=== PATIENT | female | born 1975 | race Caucasian/White ===

== ENCOUNTER → 2018-11-16 | Outpatient (CLI) | payer OTHER ==
--- NOTE | 2018-11-16 17:17 | US ---
EXAMINATION TYPE: US transvaginal DATE OF EXAM: 11/16/2018 COMPARISON: 08/28/2013 CLINICAL HISTORY: 43-year-old female N92.1Excessive and frequent menstruation with irre. TECHNIQUE: Transvaginal (TV). Date of LMP: 2 weeks ago EXAM MEASUREMENTS: Uterus: 9.5 x 5.2 x 8.1 cm Endometrial Stripe: 3.0 cm Right Ovary: 4.9 x 3.1 x 2.6 cm for volume of 19.7 mL, upper limits of normal in size Left Ovary: 2.8 x 1.5 x 2.1 cm 1. Uterus: Retroverted. Nabothian cysts noted 2. Endometrium: severely thickened with several cystic areas, largest measures 0.5 x 0.6 x 0.5 cm 3. Right Ovary: multiple cysts largest measures 2.6 x 1.5 x 2.2 cm 4. Left Ovary: wnl 5. Bilateral Adnexa: wnl 6. Posterior cul-de-sac: no free fluid IMPRESSION: 1. Severely thickened endometrium (3.0 cm) with cystic change. Findings could represent endometrial h yperplasia. Cystic endometrial hyperplasia can be seen with certain medications such as tamoxifen use . Clinically correlate. Adenomyosis would be an additional consideration. If indicated, consider fema le pelvic MRI to assess the junctional anatomy. 2. Gynecologic consultation would be helpful.
== END ==
LOC: RADUSWWP 06:54
PROVIDERS: ATTEND Family Medicine
DX: N85.00 Endometrial hyperplasia, unspecified (principal); R93.89 Abnormal findings on diagnostic imaging of other specified body structures
CPT/HCPCS: 76830

== ENCOUNTER → 2019-06-16 | Outpatient (CLI) | payer OTHER ==
--- NOTE | 2019-06-25 14:31 | MM ---
Reason for exam: additional evaluation requested from prior study. Last mammogram was performed 6 years ago. Physical Findings: Nurse did not find any significant physical abnormalities on exam. [facility] Diagnostic Mammo w CAD GEM Bilateral CC and MLO view(s) were taken. Prior study comparison: June 15, 2013, mammogram, performed at [facility]. June 07, 2013, mammogram, performed at [facility]. December 22, 2012, mammogram, performed at [facility]. June 03, 2012, mammogram, performed at [facility]. May 25, 2012, mammogram, performed at [facility]. The breast tissue is heterogeneously dense. This may lower the sensitivity of mammography. Benign appearing calcifications in the left breast. No suspicious abnormality. No significant new findings when compared with previous films. These results were verbally communicated with the patient on 06/25/19. ASSESSMENT: Benign, BI-RAD 2 RECOMMENDATION: Routine screening mammogram of both breasts in 1 year.
== END | disposition home or self-care (01) ==
LOC: RADMAMWWP 07:13
PROVIDERS: ATTEND Family Medicine
DX: Z12.31 Encounter for screening mammogram for malignant neoplasm of breast (principal)
CPT/HCPCS: 77066

== ENCOUNTER → 2019-11-03 | Outpatient (CLI) | payer OTHER ==
--- NOTE | 2019-11-03 15:15 | US ---
EXAMINATION TYPE: US kidneys/renal and bladder DATE OF EXAM: 11/03/2019 COMPARISON: NONE CLINICAL HISTORY: N20.0 KIDNEY STONES. h/o renal stones years ago, new onset of pelvic pain, no hemat uria EXAM MEASUREMENTS: Right Kidney: 12.4 x 4.7 x 4.3 cm Left Kidney: 12.4 x 4.3 x 5.0 cm Right Kidney: No hydronephrosis or masses seen Left Kidney: No hydronephrosis or masses seen Bladder: wnl Bilateral Jets seen: yes There is no evidence for hydronephrosis at this point in time. No nephrolithiasis is seen. No nathalia s are identified. The urinary bladder is anechoic. Bilateral ureteral jets are seen. IMPRESSION: Unremarkable renal ultrasound. No hydronephrosis nor nephrolithiasis seen.
== END | disposition home or self-care (01) ==
LOC: RADUSWWP 14:07
PROVIDERS: ATTEND Family Medicine
DX: N20.0 Calculus of kidney (principal)
CPT/HCPCS: 76770

== ENCOUNTER 2020-01-30 01:18 | Emergency (ER) | payer OTHER ==
[2020-01-30] MEDS ORDERED: SODIUM CHLORIDE 0.9% 1,000 ML IV STA (03:16)
[2020-01-30] MEDS ORDERED: HYDROmorphone 1 MG/ML 1 ML SYRINGE IVP STA (03:16)
[2020-01-30] MEDS ORDERED: ONDANSETRON 4 MG/2 ML VIAL IVP STA (03:16)
--- NOTE | 2020-01-30 03:54 | XR ---
EXAMINATION TYPE: XR KUB DATE OF EXAM: 01/30/2020 COMPARISON: 08/28/2013 HISTORY: Abdominal pain TECHNIQUE: 2 views upright FINDINGS: There are multiple small bowel intestinal air-fluid levels. Lung bases are clear. There is no sign of free air. There are clips from cholecystectomy. There are no pathologic calcifications ove r the kidneys. IMPRESSION: Multiple small bowel intestinal fluid levels could relate to mechanical small bowel obstr uction. No free air.
[2020-01-30 04:09] LABS: Basophils % (A) 0 %; Eosinophils # (A) 0.2 k/uL (0-0.7); Eosinophils % (A) 1 %; HCT 41.1 % (34.0-46.0); HGB 14.1 gm/dL (11.4-16.0); Hyperchromasia Slight; Lymphocytes # (A) 1.6 k/uL (1.0-4.8); Lymphocytes % (A) 10 %; MCH 27.4 pg (25.0-35.0); MCHC 34.3 g/dL (31.0-37.0); MCV 80.1 fL (80.0-100.0); Mean Platelet Volume 6.6; Monocytes # (A) 0.8 k/uL (0-1.0); Monocytes % (A) 5 %; Neutrophils # (A) 12.9 k/uL (1.3-7.7); Neutrophils % (A) 83 %; Platelet Count 312 k/uL (150-450); Poikilocytosis Slight; RBC 5.14 m/uL (3.80-5.40); RDW 14.9 % (11.5-15.5); WBC 15.6 k/uL (3.8-10.6)
[2020-01-30 04:16] LABS: Appearance,Urine Cloudy (Clear); Bacteria,Urine Rare /hpf; Bilirubin,Urine Negative (Negative); Blood,Urine Small (Negative); Color,Urine Yellow; Glucose,Urine (UA) Negative (Negative); Ketones,Urine Negative (Negative); Leukocyte Esterase,Urine Negative (Negative); Mucus,Urine Rare /hpf; Nitrite,Urine Negative (Negative); Protein,Urine 1+ (Negative); RBC,Urine 4 /hpf (0-5); Squamous Epithelial Cell,Urine 4 /hpf (0-4); Urobilinogen,Urine <2.0 mg/dL (<2.0); WBC,Urine 1 /hpf (0-5)
[2020-01-30 04:19] LABS: ALT 31 U/L (4-34); AST 29 U/L (14-36); African American GFR (CKD) >90 (>60 ml/min/1.73 sqM); Albumin 4.1 g/dL (3.5-5.0); Alkaline Phosphatase 109 U/L (38-126); Amylase 49 U/L (30-110); Anion Gap 10 mmol/L; Blood Urea Nitrogen 16 mg/dL (7-17); Calcium 9.4 mg/dL (8.4-10.2); Carbon Dioxide 29 mmol/L (22-30); Chloride 99 mmol/L (98-107); Glucose 148 mg/dL (74-99); Non-African American GFR(CKD) >90 (>60 ml/min/1.73 sqM); Potassium 3.1 mmol/L (3.5-5.1); Sodium 138 mmol/L (137-145); Total Bilirubin 0.4 mg/dL (0.2-1.3); Total Protein 6.7 g/dL (6.3-8.2)
--- NOTE | 2020-01-30 04:44 | CT ---
EXAMINATION TYPE: CT abdomen pelvis w con DATE OF EXAM: 01/30/2020 COMPARISON: 02/01/2011 HISTORY: Patient presents for possible small bowl obstruction. CT DLP: 1578.1 mGycm Automated exposure control for dose reduction was used. CONTRAST: Performed with IV Contrast, patient injected with 100mL mL of Isovue 300. Multiple axial sections were obtained from the diaphragm to the floor the pelvis with intravenous con trast. There is mild pleural thickening at the posterior lung bases. There is no pericardial effusion. Lung bases are clear of consolidation. There is fatty infiltration of the liver. Stomach is distended with fluid. The spleen is intact. There is no evidence of pancreatic mass. There are clips from cholecyst ectomy. There is no adrenal mass. Kidneys show satisfactory contrast opacification. There is no hydronephrosi s. Delayed images show normal renal excretion. Ureters are not dilated. There is no retroperitoneal a denopathy. Bladder distends smoothly. Uterus is retroverted. There is no evidence of a pelvic mass. T here is no inguinal hernia. There is no free fluid in the pelvis. There is small paraumbilical hernia that contains fat. There are multiple loops of fluid-filled large bowel down to the sigmoid colon. The small bowel is no t dilated. There are distended small bowel loops that measure up to 2.6 cm. There is no mesenteric ed christian. There is no ascites or free air. Lumbar spine is intact. IMPRESSION: Diffuse fatty infiltration of the liver is new compared to old exam. Small and large bowel fluid consistent with diarrhea. Mild small bowel ileus. No sign of a mechanical bowel obstruction. Small bowel distention is a change compared to old exam. There is new bilateral basilar pleural thickening and subsegmental atelectasis compared to old exam. Appendix not seen. No sign of thickened appendix.
--- NOTE | 2020-01-30 05:04 | ED ---
Abdominal Pain HPI - General Chief Complaint: Abdominal Pain Stated Complaint: umbilical hernia Time Seen by Provider: 01/30/20 01:35 Source: patient Mode of arrival: wheelchair Limitations: no limitations - History of Present Illness Initial Comments: 44-year-old female patient presents to the emergency department today for evaluation of generalized abdominal discomfort worse around the umbilicus. Patient states that she woke from sleep this evening with significant pain to her abdomen. Patient states she is nauseated but has not vomited. Patient states she has not had a bowel movement over the last week. States she was passing gas without difficulty yesterday. She does take any medication for her symptoms. Denies any recent travel or sick contacts. Denies any history of abdominal surgery. Denies fever or chills. Patient denies any recent rash, shortness breath, chest pain, back pain, numbness, tingling, dizziness, weakness, hematuria, dysuria, urinary urgency, urinary frequency, headache, visual changes, or any other complaints. - Related Data Allergies Allergy/AdvReac Type Severity Reaction Status Date / Time adhesive tape Allergy Unknown Verified 01/30/20 01:34 Review of Systems ROS Statement: Those systems with pertinent positive or pertinent negative responses have been documented in the HPI. ROS Other: All systems not noted in ROS Statement are negative. Past Medical History Past Medical History: Diabetes Mellitus, Hypertension Additional Past Medical History / Comment(s): hernia History of Any Multi-Drug Resistant Organisms: None Reported Past Surgical History: Section, Cholecystectomy, Uterine Ablation Past Psychological History: Anxiety Smoking Status: Never smoker Past Alcohol Use History: Rare Past Drug Use History: None Reported General Exam Limitations: no limitations General appearance: alert, in no apparent distress, other (Physical well- developed, well-nourished adult female patient in no acute distress. Vital signs upon presentation are temperature 97.8F, pulse 85, respirations 18, blood pressure 184/103, pulse ox 95% on room air) Respiratory exam: Present: normal lung sounds bilaterally. Absent: respiratory distress, wheezes, rales, rhonchi, stridor Cardiovascular Exam: Present: regular rate, normal rhythm, normal heart sounds. Absent: systolic murmur, diastolic murmur, rubs, gallop, clicks GI/Abdominal exam: Present: soft, tenderness (Generalized, worse over the umbilicus), normal bowel sounds. Absent: distended, guarding, rebound, rigid Neurological exam: Present: alert, oriented X3, CN II-XII intact Psychiatric exam: Present: normal affect, normal mood Skin exam: Present: warm, dry, intact, normal color. Absent: rash Course Vital Signs 01/30/20 01:28 Temperature 97.8 F Pulse Rate 85 Respiratory 18 Rate Blood Pressure 184/103 O2 Sat by Pulse 95 Oximetry Medical Decision Making - Medical Decision Making 44-year-old female patient presents to the emergency department today for evaluation of generalized abdominal discomfort and periumbilical pain. Physical examination revealed some mild generalized abdominal tenderness with tenderness around the umbilicus. Labs reviewed and did reveal elevated white blood cell count of 15,000. Lactic acid negative. KUB x-ray was obtained and showed fluid levels and small bowel with possible mechanical obstruction. CT was performed and showed evidence for fluid-filled loops of small bowel with distention of the small bowel. This is consistent with small bowel ileus and diarrheal illness. There is a small fat containing hernia. I did discuss findings and results with the patient. We did replace her potassium due to a potassium level III.1. She 'll be discharged to follow up with her primary care physician for recheck in 1- 2 days. Return parameters discussed in detail. She verbalizes understanding and agrees this plan - Lab Data Result diagrams: 01/30/20 03:23 01/30/20 03:23 Lab Results 01/30/20 01/30/20 01/30/20 Range/Units 03:23 03:23 03:23 WBC 15.6 H (3.8-10.6) k/uL RBC 5.14 (3.80-5.40) m/uL Hgb 14.1 (11.4-16.0) gm/dL Hct 41.1 (34.0-46.0) % MCV 80.1 (80.0-100.0) fL MCH 27.4 (25.0-35.0) pg MCHC 34.3 (31.0-37.0) g/dL RDW 14.9 (11.5-15.5) % Plt Count 312 (150-450) k/uL Neutrophils % 83 % Lymphocytes % 10 % Monocytes % 5 % Eosinophils % 1 % Basophils % 0 % Neutrophils # 12.9 H (1.3-7.7) k/uL Lymphocytes # 1.6 (1.0-4.8) k/uL Monocytes # 0.8 (0-1.0) k/uL Eosinophils # 0.2 (0-0.7) k/uL Basophils # 0.0 (0-0.2) k/uL Hyperchromasia Slight Poikilocytosis Slight Sodium 138 (137-145) mmol/L Potassium 3.1 L (3.5-5.1) mmol/L Chloride 99 (98-107) mmol/L Carbon Dioxide 29 (22-30) mmol/L Anion Gap 10 mmol/L BUN 16 (7-17) mg/dL Creatinine 0.60 (0.52-1.04) mg/dL Est GFR (CKD-EPI)AfAm >90 (>60 ml/min/1.73 sqM) Est GFR (CKD-EPI)NonAf >90 (>60 ml/min/1.73 sqM) Glucose 148 H (74-99) mg/dL Plasma Lactic Acid Prosper (0.7-2.0) mmol/L Calcium 9.4 (8.4-10.2) mg/dL Total Bilirubin 0.4 (0.2-1.3) mg/dL AST 29 (14-36) U/L ALT 31 (4-34) U/L Alkaline Phosphatase 109 (38-126) U/L Total Protein 6.7 (6.3-8.2) g/dL Albumin 4.1 (3.5-5.0) g/dL Amylase 49 (30-110) U/L Lipase 189 (23-300) U/L Urine Color Yellow Urine Appearance Cloudy H (Clear) Urine pH 6.0 (5.0-8.0) Ur Specific [place] 1.020 (1.001-1.035) Urine Protein 1+ H (Negative) Urine Glucose (UA) Negative (Negative) Urine Ketones Negative (Negative) Urine Blood Small H (Negative) Urine Nitrite Negative (Negative) Urine Bilirubin Negative (Negative) Urine Urobilinogen <2.0 (<2.0) mg/dL Ur Leukocyte Esterase Negative (Negative) Urine RBC 4 (0-5) /hpf Urine WBC 1 (0-5) /hpf Ur Squamous Epith Cells 4 (0-4) /hpf Urine Bacteria Rare H (None) /hpf Urine Mucus Rare H (None) /hpf 01/30/20 Range/Units 03:23 WBC (3.8-10.6) k/uL RBC (3.80-5.40) m/uL Hgb (11.4-16.0) gm/dL Hct (34.0-46.0) % MCV (80.0-100.0) fL MCH (25.0-35.0) pg MCHC (31.0-37.0) g/dL RDW (11.5-15.5) % Plt Count (150-450) k/uL Neutrophils % % Lymphocytes % % Monocytes % % Eosinophils % % Basophils % % Neutrophils # (1.3-7.7) k/uL Lymphocytes # (1.0-4.8) k/uL Monocytes # (0-1.0) k/uL Eosinophils # (0-0.7) k/uL Basophils # (0-0.2) k/uL Hyperchromasia Poikilocytosis Sodium (137-145) mmol/L Potassium (3.5-5.1) mmol/L Chloride (98-107) mmol/L Carbon Dioxide (22-30) mmol/L Anion Gap mmol/L BUN (7-17) mg/dL Creatinine (0.52-1.04) mg/dL Est GFR (CKD-EPI)AfAm (>60 ml/min/1.73 sqM) Est GFR (CKD-EPI)NonAf (>60 ml/min/1.73 sqM) Glucose (74-99) mg/dL Plasma Lactic Acid Prosper 2.0 (0.7-2.0) mmol/L Calcium (8.4-10.2) mg/dL Total Bilirubin (0.2-1.3) mg/dL AST (14-36) U/L ALT (4-34) U/L Alkaline Phosphatase (38-126) U/L Total Protein (6.3-8.2) g/dL Albumin (3.5-5.0) g/dL Amylase (30-110) U/L Lipase (23-300) U/L Urine Color Urine Appearance (Clear) Urine pH (5.0-8.0) Ur Specific [place] (1.001-1.035) Urine Protein (Negative) Urine Glucose (UA) (Negative) Urine Ketones (Negative) Urine Blood (Negative) Urine Nitrite (Negative) Urine Bilirubin (Negative) Urine Urobilinogen (<2.0) mg/dL Ur Leukocyte Esterase (Negative) Urine RBC (0-5) /hpf Urine WBC (0-5) /hpf Ur Squamous Epith Cells (0-4) /hpf Urine Bacteria (None) /hpf Urine Mucus (None) /hpf - Radiology Data Radiology results: report reviewed, image reviewed KUB was obtained. Report reviewed in its entirety. Impression by Dr. Sweeney shows multiple small bowel intestinal fluid levels could relate to mechanical small bowel traction. No free air. CT abdomen and pelvis is obtained. Report was reviewed in its entirety. Impression by Dr. Sweeney shows diffuse fatty infiltration of the liver is new compared to old exam. Small March bowel fluid consistent with diarrhea. Small bowel ileus. No sign of mechanical bowel instruction. Small bowel distention is a change compared to old exam. There is new bilateral basilar pleural thickening and subsegmental atelectasis compared to old exam. Appendix not seen. No sign of a thickened appendix. Disposition Clinical Impression: Abdominal pain, Diarrhea Disposition: HOME SELF-CARE Condition: Good Instructions (If sedation given, give patient instructions): Acute Diarrhea (ED), Abdominal Pain (ED) Additional Instructions: Start with clear liquid diet and advance as tolerated. Return to the emergency department for any new, worsening, or concerning symptoms. Return to the emergency department immediately for any new, worsening, or concerning symptoms. Is patient prescribed a controlled substance at d/c from ED?: No Referrals: Noel Becker MD [Primary Care Provider] - 1-2 days Time of Disposition: 05:04
[2020-01-30] MEDS ORDERED: POTASSIUM CHLORIDE ER 20 MEQ TAB.ER PO STA (05:05)
[2020-01-30] MEDS ORDERED: ONDANSETRON 4 MG ODT STARTER PACK 2 TAB BTL PO STA (05:10)
[2020-01-30 05:25] VITALS: BP 146/83; PULSE 78; RESP 16; TEMP 98.4
== END 2020-01-30 05:27 | disposition home or self-care (01) ==
LOC: EC 01:18
DX: R10.9 Unspecified abdominal pain (principal); R19.7 Diarrhea, unspecified; R11.0 Nausea; R10.817 Generalized abdominal tenderness; E11.9 Type 2 diabetes mellitus without complications; I10 Essential (primary) hypertension; Z91.048 Other nonmedicinal substance allergy status
CPT/HCPCS: 36415; 80053; 82150; 83605; 83690; 85025; 81001; 74018; 74177; 99284; 96374; 96375; 96361; J2405; J1170; S0119; Q9967

== ENCOUNTER → 2020-03-21 | Outpatient (CLI) | payer OTHER | END | disposition home or self-care (01) | LOC: LABPAT 11:29 | PROVIDERS: ATTEND Surgery Plastic and Reconstructive Surgery | DX: Z01.810 Encounter for preprocedural cardiovascular examination (principal) | CPT/HCPCS: 93005 ==

== ENCOUNTER 2020-05-25 07:33 | Day surgery (SDC) | payer OTHER ==
[2020-05-24 08:46] VITALS: BMI 33.3
[~2020-05-25 07:33] MED LIST: DEXAMETHASONE SOD PHOSPHATE 10 MG/ML 1 ML VIAL IV ONE; HEPARIN SODIUM,PORCINE 5,000 UNIT/ML 1 ML VIAL SQ ONE; HYDROmorphone 0.5 MG/0.5 ML SYRINGE IVP PRN; LACTATED RINGERS 1,000 ML IV SCH; LIDOCAINE 1% (10MG/ML) FOR IV START INTRADERMA PRN; ONDANSETRON 4 MG/2 ML VIAL IVP ONE
[2020-05-25 08:21] LABS: Glucose,Whole Blood 151 mg/dL (75-99)
[2020-05-25] MEDS ORDERED: ONDANSETRON 4 MG/2 ML VIAL ONE ×2 (08:23→14:24)
[2020-05-25] MEDS ORDERED: HEPARIN SODIUM,PORCINE 5,000 UNIT/ML 1 ML VIAL ONE (08:23)
[2020-05-25 08:29] LABS: Basophils # (A) 0.1 k/uL (0-0.2); Basophils % (A) 1 %; Eosinophils # (A) 0.2 k/uL (0-0.7); Eosinophils % (A) 2 %; HCT 40.3 % (34.0-46.0); HGB 14.2 gm/dL (11.4-16.0); Lymphocytes # (A) 2.5 k/uL (1.0-4.8); Lymphocytes % (A) 24 %; MCH 28.1 pg (25.0-35.0); MCHC 35.4 g/dL (31.0-37.0); MCV 79.5 fL (80.0-100.0); Mean Platelet Volume 6.6; Monocytes # (A) 0.4 k/uL (0-1.0); Monocytes % (A) 4 %; Neutrophils # (A) 7.1 k/uL (1.3-7.7); Neutrophils % (A) 69 %; Platelet Count 327 k/uL (150-450); Poikilocytosis Slight; RBC 5.07 m/uL (3.80-5.40); RDW 14.8 % (11.5-15.5); WBC 10.3 k/uL (3.8-10.6)
[2020-05-25 08:46] LABS: ALT 38 U/L (4-34); AST 35 U/L (14-36); African American GFR (CKD) >90 (>60 ml/min/1.73 sqM); Albumin 4.2 g/dL (3.5-5.0); Alkaline Phosphatase 121 U/L (38-126); Anion Gap 11 mmol/L; Blood Urea Nitrogen 10 mg/dL (7-17); Calcium 9.9 mg/dL (8.4-10.2); Carbon Dioxide 28 mmol/L (22-30); Chloride 100 mmol/L (98-107); Glucose 146 mg/dL (74-99); Non-African American GFR(CKD) >90 (>60 ml/min/1.73 sqM); Potassium 3.1 mmol/L (3.5-5.1); Sodium 139 mmol/L (137-145); Total Bilirubin 0.4 mg/dL (0.2-1.3); Total Protein 7.2 g/dL (6.3-8.2)
[2020-05-25] MEDS ORDERED: GABAPENTIN 300 MG CAP PO STA (08:58)
[2020-05-25] MEDS ORDERED: ACETAMINOPHEN TAB 500 MG TAB PO STA (08:58)
[2020-05-25] MEDS ORDERED: KETOROLAC 30 MG/ML 1 ML VIAL IVP PRN (08:58)
--- NOTE | 2020-05-25 08:58 | P.GSHP ---
History of Present Illness H&P Date: 05/25/20 CHIEF COMPLAINT: Ventral hernia. HISTORY OF PRESENT ILLNESS: The patient is a 45-year-old female who presents with a history of umbilical swelling. Findings were consistent with ventral hernia. Now she presents for further evaluation and management. PAST MEDICAL HISTORY: Please see list. PAST SURGICAL HISTORY: Please see list. MEDICATIONS: Please see list. ALLERGIES: Please see list. SOCIAL HISTORY: No illicit drug use FAMILY HISTORY: No reports of Crohn disease or ulcerative colitis. REVIEW OF ORGAN SYSTEMS: CONSTITUTIONAL: No reports of fevers or chills. GI: Denies any blood in stools or constipation. PHYSICAL EXAM: VITAL SIGNS: Stable GENERAL: Well-developed pleasant female in no acute distress. HEENT: No scleral icterus. Extraocular movements grossly intact. Moist buccal mucosa. NECK: Supple without lymphadenopathy. CHEST: Unlabored respirations. Equal bilateral excursions. CARDIOVASCULAR: Regular rate and rhythm. Distal 2+ pulses. ABDOMEN: Soft, nondistended. Ventral hernia MUSCULOSKELETAL: No clubbing, cyanosis, or edema. ASSESSMENT: 1. Ventral hernia PLAN: 1. Recommend proceeding with robotic ventral hernia repair with mesh. 2. Benefits and risks of surgical intervention was discussed including possibility of open technique. 3. DVT prophylaxis. 4. Antibiotic prophylaxis. Past Medical History Past Medical History: Diabetes Mellitus, Hypertension, Sleep Apnea/CPAP/BIPAP Additional Past Medical History / Comment(s): hernia, Hx. of seizures, states has not had a seizure for 16 years. History of Any Multi-Drug Resistant Organisms: None Reported Past Surgical History: Section, Cholecystectomy, Uterine Ablation Past Anesthesia/Blood Transfusion Reactions: Postoperative Nausea & Vomiting (PONV) Smoking Status: Never smoker - Past Family History Mother Family Medical History: Cancer Medications and Allergies Home Medications Medication Instructions Recorded Confirmed Type Atenolol [Tenormin] 25 mg PO HS 05/24/20 05/25/20 History Cetirizine HCl [Zyrtec] 10 mg PO DAILY PRN 05/24/20 05/25/20 History Losartan/Hydrochlorothiazide 1 tab PO HS 05/24/20 05/25/20 History [Losartan-Hctz 100-25 mg Tab] Sertraline [Zoloft] 50 mg PO HS 05/24/20 05/25/20 History busPIRone HCl [Buspar] 15 mg PO BID 05/24/20 05/25/20 History metFORMIN HCL 1,000 mg PO BID 05/24/20 05/25/20 History Allergies Allergy/AdvReac Type Severity Reaction Status Date / Time adhesive tape Allergy Rash/Hives Verified 05/25/20 08:08 Surgical - Exam Vital Signs Temp Pulse Resp BP Pulse Ox 97 F L 74 16 139/91 98 05/25/20 08:22 05/25/20 08:22 05/25/20 08:22 05/25/20 08:22 05/25/20 08:22 Results - Labs 05/25/20 08:18 05/25/20 08:18 Abnormal Lab Results - Last 24 Hours (Table) 05/25/20 05/25/20 05/25/20 Range/Units 08:15 08:18 08:18 MCV 79.5 L (80.0-100.0) fL Potassium 3.1 L (3.5-5.1) mmol/L Glucose 146 H (74-99) mg/dL POC Glucose (mg/dL) 151 H (75-99) mg/dL ALT 38 H (4-34) U/L Diabetes panel 05/25/20 Range/Units 08:18 Sodium 139 (137-145) mmol/L Potassium 3.1 L (3.5-5.1) mmol/L Chloride 100 (98-107) mmol/L Carbon Dioxide 28 (22-30) mmol/L BUN 10 (7-17) mg/dL Creatinine 0.60 (0.52-1.04) mg/dL Glucose 146 H (74-99) mg/dL Calcium 9.9 (8.4-10.2) mg/dL AST 35 (14-36) U/L ALT 38 H (4-34) U/L Alkaline Phosphatase 121 (38-126) U/L Total Protein 7.2 (6.3-8.2) g/dL Albumin 4.2 (3.5-5.0) g/dL Calcium panel 05/25/20 Range/Units 08:18 Calcium 9.9 (8.4-10.2) mg/dL Albumin 4.2 (3.5-5.0) g/dL Pituitary panel 05/25/20 Range/Units 08:18 Sodium 139 (137-145) mmol/L Potassium 3.1 L (3.5-5.1) mmol/L Chloride 100 (98-107) mmol/L Carbon Dioxide 28 (22-30) mmol/L BUN 10 (7-17) mg/dL Creatinine 0.60 (0.52-1.04) mg/dL Glucose 146 H (74-99) mg/dL Calcium 9.9 (8.4-10.2) mg/dL Adrenal panel 05/25/20 Range/Units 08:18 Sodium 139 (137-145) mmol/L Potassium 3.1 L (3.5-5.1) mmol/L Chloride 100 (98-107) mmol/L Carbon Dioxide 28 (22-30) mmol/L BUN 10 (7-17) mg/dL Creatinine 0.60 (0.52-1.04) mg/dL Glucose 146 H (74-99) mg/dL Calcium 9.9 (8.4-10.2) mg/dL Total Bilirubin 0.4 (0.2-1.3) mg/dL AST 35 (14-36) U/L ALT 38 H (4-34) U/L Alkaline Phosphatase 121 (38-126) U/L Total Protein 7.2 (6.3-8.2) g/dL Albumin 4.2 (3.5-5.0) g/dL
[2020-05-25] MEDS ORDERED: TAMSULOSIN 0.4 MG CAP.ER.24H PO STA (08:59)
[2020-05-25] MEDS ORDERED: ACETAMINOPHEN TAB 500 MG TAB ONE (09:03)
[2020-05-25] MEDS ORDERED: MIDAZOLAM 2 MG/2 ML VIAL IV ONE (09:39)
[2020-05-25] MEDS ORDERED: MIDAZOLAM 2 MG/2 ML VIAL ONE (09:45)
[2020-05-25] MEDS ORDERED: DEXAMETHASONE SOD PHOSPHATE 4 MG/ML 1 ML VIAL ONE (09:45)
[2020-05-25] MEDS ORDERED: fentaNYL (PF) 50 MCG/ML 2 ML AMP ONE (09:45)
[2020-05-25] MEDS ORDERED: NEOSTIGMINE 1 MG/ML 10 ML VIAL ONE (09:45)
[2020-05-25] MEDS ORDERED: ROCURONIUM BROMIDE 10 MG/ML 5 ML VIAL IV ONE (09:45)
[2020-05-25] MEDS ORDERED: GLYCOPYRROLATE 0.2 MG/ML 2 ML VIAL ONE (09:45)
[2020-05-25] MEDS ORDERED: ROPIVACAINE 5 MG/ML 30 ML VIAL ONE (09:45)
[2020-05-25] MEDS ORDERED: SUCCINYLCHOLINE CHLORIDE 100 MG/5 ML SYR IV ONE (09:45)
[2020-05-25] MEDS ORDERED: PROPOFOL 10 MG/ML 20 ML VIAL IV ONE (09:45)
[2020-05-25] MEDS ORDERED: LIDOCAINE 1% INJ 10MG/ML (20 ML MDV) ONE (09:45)
[2020-05-25] MEDS ORDERED: BUPIVACAIN-EPI 0.25%-1:200,000 30 ML VIAL SQ ONE (09:53)
[2020-05-25] MEDS ORDERED: LACTATED RINGERS 1,000 ML IV ONE (11:48)
[2020-05-25 12:15] VITALS: TEMP 97.3
[2020-05-25 12:30] LABS: Glucose,Whole Blood 217 mg/dL (75-99)
[2020-05-25 12:32] VITALS: RESP 16
--- NOTE | 2020-05-25 12:33 | P.OP ---
Date of Procedure: 05/25/20 Description of Procedure: SURGEON: MIMI GAMBINO MD PREOPERATIVE DIAGNOSES: 1. Initial incarcerated umbilical hernia 2. Obesity due to excess calories, BMI 33.5 3. Diabetes type 2, [id number] 4. Hypertensive heart disease 5. Depressive disorder 6. Obstructive sleep apnea POSTOPERATIVE DIAGNOSES: 1. Initial lower abdominal incisional hernia with incarceration 2. Initial incarcerated umbilical hernia 3. Diabetes type 2, [id number] 4. Hypertensive heart disease 5. Depressive disorder 6. Obstructive sleep apnea 7. Obesity due to excess calories, BMI 33.5 OPERATION: 1. Robotic-assisted da Hector Xi laparoscopic repair of initial incarcerated lower midline incisional hernia with mesh, ventralight ST mesh 11.4 cm 2. Robotic-assisted da Hector Xi laparoscopic repair of initial incarcerated umbilical hernia with mesh, ventralight ST mesh 11.4 cm Anesthesia: GETA, regional, local Estimated Blood Loss (ml): 5 Pathology: Incarcerated umbilical hernia defect COMPLICATIONS: None. Operative Findings: 1. Lower midline incarcerated incisional hernia defect 8 x 4 cm from previous 2. Umbilical hernia defect 3 x 3 cm with incarceration preperitoneal fat 3. Fascia repaired using #1 V-lock suture INDICATIONS: The patient is a 45-year-old female who presents with abdominal wall hernia. Surgical intervention with laparoscopic versus robotic and open techniques were reviewed. Placement of mesh was also reviewed. Benefits and risks were thoroughly described. Informed consent was obtained. DESCRIPTION OF PROCEDURE: The patient was brought into the operating room and laid in supine position. After general induction, the abdomen had been prepped and draped in standard sterile fashion. Ioban draping was also placed. Prior to incision, a timeout protocol was confirmed with surgical team regarding the patient's name including procedures to be performed. The robot was primed prior to the procedure. A field block using local anesthetic was placed along hernia site including the proposed port sites. Initial incision was made with an #11 blade along the left upper quadrant. A 0 degree 5 mm laparoscopic trocar entry was performed and insufflated. Three 8 mm ports were placed along the left lateral abdominal wall under direct localization after exchanging the 5-mm for an 8 mm port. Placements of the ports were 15 cm from the target anatomy and 10 cm apart. An accessory 12 mm port was placed at the left upper quadrant for exchange of mesh including sutures. The da Hector Xi robot was previously primed, prepped and draped then docked from the right side of the patient onto the left side of the patient. I then sat at the robot Da Hector Xi console where working arms of the robot including Bovie cautery connected to robotic scissors, needle restaurant delivery driver, and graspers placed by the digital sales assistant. Incarcerated omental contents were found along the lower midline defect and reduced after lysis of adhesions. A seperate defect of the umbilicus was identified and reduced of incarcerated preperitoneal fat. The defect was reduced. Two distinct fascial defects were found: Lower midline defect 8 x 3 cm and umbilical hernia defect 3 x 3 cm. The incarcerated contents were reduced as the peritoneal fat was cleaned from the abdominal wall. Next, hemostasis was checked with cautery. The hernia defects were oversewn using #1 nonabsorbable V-lock suture for each defect separately with fascial imbrication x 2. Next, ventralight ST mesh 11.4 cm was placed with the rough side towards the abdominal wall as to cover the epigastric including umbilical defect. 2-0 VLOC 9 inch nonabsorbable sutures were used to fixate the mesh. A final endoscopic imaging was obtained. All instruments and pneumoperitoneum were evacuated from the abdominal cavity. The da Hector Xi robot was undocked from the patient. I re-scrubbed into the case for closure of incisions. The fascia of the 12-mm port was probed and less than 8-mm in size. The incisions were reapproximated using 4-0 Monocryl in an interrupted subcuticular fashion. Liquid glue was applied to the skin after cleansing the skin with normal saline and dilute hydrogen peroxide. An abdominal binder was placed. An umbilical dressing was placed prior. At the end of the procedure, needle, sponge, and instrument count had been verified correct by neurosurgical physician assistant. The patient was taken to the postanesthesia care unit in stable condition. Plan - Discharge Summary Discharge Rx Participant: Yes New Discharge Prescriptions: Continue metFORMIN HCL 1,000 mg PO BID Cetirizine HCl [Zyrtec] 10 mg PO DAILY PRN PRN Reason: Allergy Symptoms Losartan/Hydrochlorothiazide [Losartan-Hctz 100-25 mg Tab] 1 tab PO HS Sertraline [Zoloft] 50 mg PO HS Atenolol [Tenormin] 25 mg PO HS busPIRone HCl [Buspar] 15 mg PO BID Discharge Medication List Atenolol [Tenormin] 25 mg PO HS 05/24/20 [History] Cetirizine HCl [Zyrtec] 10 mg PO DAILY PRN 05/24/20 [History] Losartan/Hydrochlorothiazide [Losartan-Hctz 100-25 mg Tab] 1 tab PO HS 05/24/20 [History] Sertraline [Zoloft] 50 mg PO HS 05/24/20 [History] busPIRone HCl [Buspar] 15 mg PO BID 05/24/20 [History] metFORMIN HCL 1,000 mg PO BID 05/24/20 [History] Follow up Appointment(s)/Referral(s): Mimi Gambino MD [STAFF PHYSICIAN] - 05/30/20 Patient Instructions/Handouts: Laparoscopic Herniorrhaphy (DC), Abdominal Binder (DC) Activity/Diet/Wound Care/Special Instructions: DO NOT REMOVE BELLY BUTTON DRESSING. Wear abdominal binder at all times No lifting over 4 pounds in 4 weeks until Jun 25. March shower. No bath tub soaks for two weeks until Jun Diet as tolerated. No driving while on narcotics. Use Tylenol and ibuprofen scheduled for the next 24-48 hours for best pain relief. Use ice along incisions for the today to prevent swelling. Discharge Disposition: HOME SELF-CARE
[2020-05-25] MEDS ORDERED: KETOROLAC 30 MG/ML 1 ML VIAL ONE (13:37)
[2020-05-25] MEDS ORDERED: ONDANSETRON 4 MG/2 ML VIAL IVP ONE (14:24)
[2020-05-25 14:29] LABS: Glucose,Whole Blood 232 mg/dL (75-99)
[2020-05-25] MEDS ORDERED: HYDROmorphone 0.5 MG/0.5 ML SYRINGE IVP ONE (14:34)
[2020-05-25] MEDS ORDERED: INSULIN ASPART (NovoLOG) 100 UNIT/ML VIAL SQ ONE (14:36)
[2020-05-25 15:09] VITALS: BP 147/88; PULSE 81
--- NOTE | 2020-05-26 06:56 | P.ANPRN ---
Procedure Note - Anesthesia - Nerve Block Performed Bilateral Rectus Abdominis Single Time Out Performed: Yes Date of Procedure: 05/25/20 Procedure Start Time: 09:39 Procedure Stop Time: 09:46 Location of Patient: PreOp Indication: Acute Post-Operative Pain, Requested by Surgeon Sedation Type: Sedate with meaningful contact maintained Preparation: Sterile Prep Position: Supine Needle Types: Pajunk Needle Gauge: 21 Ultrasound used to visualize needle placement: Yes Ultrasound used to observe medication spread: Yes Blood Aspirated: No Pain Paresthesia on Injection Noted: No Resistance on Injection: Normal Image Stored and Saved: Yes Events: Uneventful and Well Tolerated (ropi .5% 20cc plus dexamethasone 4mg each side)
== END 2020-05-25 15:32 | disposition home or self-care (01) ==
LOC: OR 07:33
PROVIDERS: ATTEND Surgery Plastic and Reconstructive Surgery
DX: K43.0 Incisional hernia with obstruction, without gangrene (principal); K42.0 Umbilical hernia with obstruction, without gangrene; I11.9 Hypertensive heart disease without heart failure; F32.9 Major depressive disorder, single episode, unspecified; G47.33 Obstructive sleep apnea (adult) (pediatric); E11.9 Type 2 diabetes mellitus without complications; E66.09 Other obesity due to excess calories; Z68.33 Body mass index [BMI] 33.0-33.9, adult; Z79.84 Long term (current) use of oral hypoglycemic drugs; Z79.899 Other long term (current) drug therapy; Z91.09 Other allergy status, other than to drugs and biological substances; Z88.8 Allergy status to other drugs, medicaments and biological substances; Z86.69 Personal history of other diseases of the nervous system and sense organs; Z90.49 Acquired absence of other specified parts of digestive tract; Z98.891 History of uterine scar from previous surgery; Z91.048 Other nonmedicinal substance allergy status; Z80.9 Family history of malignant neoplasm, unspecified
CPT/HCPCS: 81025; 64488; 80053; 85025; 88302; 49653; 49655; C1781; J2250; J1644; J1100 ×2; J2710; J0690; J2405; J2001; J3010; J1885; J2795; J0330; J2704; J1170

== ENCOUNTER → 2021-05-10 | Outpatient (CLI) | payer OTHER ==
--- NOTE | 2021-05-11 07:21 | US ---
EXAMINATION TYPE: US transvaginal DATE OF EXAM: 05/10/2021 COMPARISON: CT, US CLINICAL HISTORY: N93.9 Abn uterine bleeding. Endometrial ablation x 2; abnormal vaginal bleeding, he yessica menses; ; C section x 3 TECHNIQUE: Transvaginal (TV). Transvaginal sonographic images were medically necessary to better as sess the endometrium and as bladder was not fully distended. Date of LMP: unknown EXAM MEASUREMENTS: Uterus: 9.4 x 6.1 x 5.1 cm Endometrial Stripe: 1.0 cm upper endometrium Right Ovary: 2.7 x 2.9 x 1.6 cm Left Ovary: 3.25 x 2.1 x 2.2 cm 1. Uterus: Retroverted ; couple of small Nabothian cysts seen in cervix. 2. Endometrium: hyperechoic solid mass seen in lower endometrial area = 2.3 x 1.6 x 1.4cm; small luigi unt of complex fluid area seen in remaining visualized portion of upper endometrium. 3. Right Ovary: multifollicular with largest ovarian cyst = 1.4 x 1.4 x 1.4cm 4. Left Ovary: multifollicular with largest ovarian cyst = 1.0 x 1.0 x 0.8cm. 5. Bilateral Adnexa: wnl 6. Posterior cul-de-sac: wnl IMPRESSION: In the lower uterine segment within the endometrium, there is a 2.3 x 1.4 x 1.6 cm hyperechoic lesion which likely contains flow on color Doppler imaging, worrisome for endometrial neoplasm or polyp. Cl inical follow-up is recommended with direct visualization.
== END | disposition home or self-care (01) ==
LOC: RADUSWWP 15:57
PROVIDERS: ATTEND Family Medicine
DX: N93.9 Abnormal uterine and vaginal bleeding, unspecified (principal); N92.0 Excessive and frequent menstruation with regular cycle
CPT/HCPCS: 76830

== ENCOUNTER 2023-03-26 02:32 | Emergency (ER) | payer OTHER ==
[2023-03-26] MEDS ORDERED: SODIUM CHLORIDE 0.9% 1,000 ML IV STA (02:47)
[2023-03-26] MEDS ORDERED: diphenhydrAMINE 50 MG/ML 1 ML VIAL IVP STA (03:05)
[2023-03-26] MEDS ORDERED: ONDANSETRON 4 MG/2 ML VIAL IVP STA (03:05)
--- NOTE | 2023-03-26 03:10 | ED ---
General Adult HPI - General Chief complaint: Nausea/Vomiting/Diarrhea Stated complaint: Fever, Chills, Diarrhea, Abdominal Pain Time Seen by Provider: 03/26/23 02:35 Source: patient, family Mode of arrival: ambulatory Limitations: no limitations - History of Present Illness Initial comments: Dictation was produced using [employer] dictation software. please excuse any grammatical, word or spelling errors. Chief Complaint: 48-year-old male presents to the ER for multiple complaints History of Present Illness: This 48-year-old female she presents to the emergency Department with multiple complaints. States her symptoms began at 4 PM. She woke up feeling fine. She states that she's been having a headache everyday. Located to the frontal region. Patient has extensive history of headaches. Patient denies any vision loss. States that she does have neck pain that rates down to her lumbar spine. She also has fever, right groin pain. She has nausea. Some bouts of diarrhea. Denies any chest pain. She does have mild runny nose. She is not sure if this is secondary to the weather. She took some Motrin at home feels that her symptoms not really getting better. No obvious sick contacts. She is history of cholecystectomy. The ROS documented in this emergency department record has been reviewed and confirmed by me. Those systems with pertinent positive or negative responses have been documented in the HPI. All other systems are other negative and/or noncontributory. - Related Data Home Medications Medication Instructions Recorded Confirmed Cetirizine HCl [Zyrtec] 10 mg PO DAILY PRN 05/24/20 01/23/23 Losartan/Hydrochlorothiazide 1 tab PO HS 05/24/20 01/23/23 [Losartan-Hctz 100-25 mg Tab] Sertraline [Zoloft] 50 mg PO HS 05/24/20 01/23/23 atenoloL [Tenormin] 25 mg PO HS 05/24/20 01/23/23 busPIRone HCl [Buspar] 15 mg PO BID 05/24/20 01/23/23 Non Formulary Drug 1 injection SQ DIRECTED 01/23/23 01/23/23 Semaglutide [Rybelsus] 7 mg PO DAILY 01/23/23 01/23/23 Allergies Allergy/AdvReac Type Severity Reaction Status Date / Time adhesive tape Allergy Rash/Hives Verified 03/26/23 02:39 Review of Systems ROS Statement: Those systems with pertinent positive or pertinent negative responses have been documented in the HPI. ROS Other: All systems not noted in ROS Statement are negative. Past Medical History Past Medical History: Blood Disorder, Diabetes Mellitus, Hypertension, Sleep Apnea/CPAP/BIPAP Additional Past Medical History / Comment(s): hernia, Hx. of seizures, states has not had a seizure for 16 years. IRON DEFICIENCY ANEMIA. History of Any Multi-Drug Resistant Organisms: None Reported Past Surgical History: Section, Cholecystectomy, Uterine Ablation Past Anesthesia/Blood Transfusion Reactions: Postoperative Nausea & Vomiting (PONV) Past Psychological History: Anxiety Smoking Status: Never smoker Past Alcohol Use History: None Reported Past Drug Use History: None Reported - Past Family History Mother Family Medical History: Cancer General Exam - General Exam Comments Initial Comments: PHYSICAL EXAM: General Impression: Alert and oriented x3, not in acute distress HEENT: Normocephalic atraumatic, extra-ocular movements intact, pupils equal and reactive to light bilaterally, mucous membranes moist. Cardiovascular: Heart regular rate and rhythm Chest: Able to complete full sentences, no retractions, no tachypnea Abdomen: abdomen soft, mild palpatory tenderness to the right lower quadrant at McBurney's point, no rebound tenderness, right-sided pain with outpatient the left abdomen, non-distended, no organomegaly Musculoskeletal: Pulses present and equal in all extremities, no peripheral edema Motor: no focal deficits noted Neurological: CN II-XII grossly intact, no focal motor or sensory deficits noted, negative Lhermitte's, negative Kernig's, negative Brudzinski Skin: Intact with no visualized rashes Psych: Normal affect and mood Limitations: no limitations Course Vital Signs 03/26/23 03/26/23 02:35 05:03 Temperature 99.8 F H 99.9 F H Pulse Rate 122 H 105 H Respiratory 22 20 Rate Blood Pressure 167/93 137/68 O2 Sat by Pulse 98 96 Oximetry Medical Decision Making - Medical Decision Making Was pt. sent in by a medical professional or institution (, PA, ROTARY DRIER FEEDER, urgent care, hospital, or retirement...) When possible be specific @ -No Did you speak to anyone other than the patient for history (EMS, parent, family, police, friend...)? What history was obtained from this source @ -No Did you review nursing and triage notes (agree or disagree)? Why? @ -I reviewed and agree with nursing and triage notes Were old charts reviewed (outside hosp., previous admission, EMS record, old EKG, old radiological studies, urgent care reports/EKG's, retirement records)? Report findings @ -No old charts were reviewed Differential Diagnosis (chest pain, altered mental status, abdominal pain women, abdominal pain men, vaginal bleeding, musculoskeletal, weakness, fever, dyspnea, syncope, headache, dizziness, GI bleed, back pain, seizure, CVA, palpatations, mental health)? @ -Differential Headache: Migraine, tension, cluster, carbon monoxide, central venous thrombosis, pension karma temporal arteritis, acute closure glaucoma, intercranial hemorrhage, mastoiditis, sinusitis, head injury, this is not meant to be an all-inclusive list. Differential Fever: Pneumonia, viral URI, endocarditis, myocarditis, pericarditis, otitis, sinusitis, peritonsillar Abscess, retropharyngeal Abscess, epiglottitis, peritonitis, appendicitis, Celena cystitis, diverticulitis, hepatitis, colitis, UTI, PID, TOA, pyelonephritis, prostatitis, epididymitis, meningitis, encephalitis, pulmonary embolism, CVA, thyroid storm, pancreatitis, adrenal crisis, cavernous sinus thrombosis, this is not meant to be an all-inclusive list. EKG interpreted by me (3pts min.). @ -None done X-rays interpreted by me (1pt min.). @ -None done CT interpreted by me (1pt min.). @ -Computed tomography scan of the brain is unremarkable U/S interpreted by me (1pt. min.). @ -None done What testing was considered but not performed or refused? (CT, X-rays, U/S, labs)? Why? @ -None What meds were considered but not given or refused? Why? @ -None Did you discuss the management of the patient with other professionals (professionals i.e. , PA, ROTARY DRIER FEEDER, lab, RT, psych nurse, manager social responsibility, bricklayer, teacher, security control room officer, family preservation caseworker)? Give summary @ -No Was smoking cessation discussed for >3mins.? @ -No Was critical care preformed (if so, how long)? @ -No Were there social determinants of health that impacted care today? How? (Homelessness, low income, unemployed, alcoholism, drug addiction, transportation, low edu. Level, literacy, decrease access to med. care, fpc, rehab)? @ -No Was there de-escalation of care discussed even if they declined (Discuss DNR or withdrawal of care, Hospice)? DNR status @ -No What co-morbidities impacted this encounter? (DM, HTN, Smoking, COPD, CAD, Cancer, CVA, ARF, Chemo, Hep., AIDS, mental health diagnosis, sleep apnea, morbid obesity)? @ -Extensive history of migraines with family history of migraines Was patient admitted / discharged? Hospital course, mention meds given and route, prescriptions, significant lab abnormalities, going to OR and other pertinent info. @ -48-year-old female presents emergency Department with multiple complaints. She complains of headache and abdominal symptoms. Patient likely suffering gastroenteritis. She does have stents history of migraines. Patient given headache cocktail with improvement of symptoms. Patient also given magnesium and Decadron which further improved her symptoms. Laboratory evaluation obtained. Mild leukocytosis. Patient has potassium of 2.9. She states that she was recently prescribed oral potassium. Urinalysis is negative. Viral testing is negative. Disposition options were discussed with patient she would prefer to be discharge. Inpatient admission with neurology consultation in symptom control was offered patient and she declined rather be at home. Still to follow-up with primary doctor as she would likely be a candidate for rescue headache medications. Undiagnosed new problem with uncertain prognosis? @ -No Drug Therapy requiring intensive monitoring for toxicity (Heparin, Nitro, Insulin, Cardizem)? @ -No Were any procedures done? @ -No Diagnosis/symptom? Acute, or Chronic, or Acute on Chronic? Uncomplicated (without systemic symptoms) or Complicated (systemic symptoms)? @ -1. Migraine headache, 2. Constitutional symptoms, no obvious source Side effects of treatment? @ -No Exacerbation, Progression, or Severe Exacerbation? @ -No Poses a threat to life or bodily function? How? (Chest pain, [place], [place], pneumonia, PE, COPD, DKA, ARF, appy, cholecystitis, CVA, Diverticulitis, Homicidal, Suicidal, threat to staff... and all critical care pts) @ -yes - Lab Data Result diagrams: 03/26/23 03:08 03/26/23 03:08 Lab Results 03/26/23 03/26/23 03/26/23 Range/Units 03:08 03:08 03:20 WBC 13.6 H (3.8-10.6) k/uL RBC 4.91 (3.80-5.40) m/uL Hgb 13.0 (11.4-16.0) gm/dL Hct 36.4 (34.0-46.0) % MCV 74.1 L (80.0-100.0) fL MCH 26.4 (25.0-35.0) pg MCHC 35.7 (31.0-37.0) g/dL RDW 16.7 H (11.5-15.5) % Plt Count 325 (150-450) k/uL MPV 7.0 Neutrophils % 88 % Lymphocytes % 8 % Monocytes % 3 % Eosinophils % 1 % Basophils % 0 % Neutrophils # 11.9 H (1.3-7.7) k/uL Lymphocytes # 1.1 (1.0-4.8) k/uL Monocytes # 0.5 (0-1.0) k/uL Eosinophils # 0.1 (0-0.7) k/uL Basophils # 0.0 (0-0.2) k/uL Hyperchromasia Slight Poikilocytosis Moderate Anisocytosis Slight Microcytosis Moderate Sodium 141 (137-145) mmol/L Potassium 2.9 L (3.5-5.1) mmol/L Chloride 102 (98-107) mmol/L Carbon Dioxide 24 (22-30) mmol/L Anion Gap 15 mmol/L BUN 17 (7-17) mg/dL Creatinine 0.76 (0.52-1.04) mg/dL Est GFR (CKD-EPI)AfAm >90 (>60 ml/min/1.73 sqM) Est GFR (CKD-EPI)NonAf >90 (>60 ml/min/1.73 sqM) Glucose 159 H (74-99) mg/dL Calcium 10.5 H (8.4-10.2) mg/dL Total Bilirubin 0.5 (0.2-1.3) mg/dL AST 21 (14-36) U/L ALT 23 (4-34) U/L Alkaline Phosphatase 102 (38-126) U/L Total Protein 7.2 (6.3-8.2) g/dL Albumin 4.4 (3.5-5.0) g/dL Lipase 214 (23-300) U/L Urine Color Urine Appearance (Clear) Urine pH (5.0-8.0) Ur Specific [place] (1.001-1.035) Urine Protein (Negative) Urine Glucose (UA) (Negative) Urine Ketones (Negative) Urine Blood (Negative) Urine Nitrite (Negative) Urine Bilirubin (Negative) Urine Urobilinogen (<2.0) mg/dL Ur Leukocyte Esterase (Negative) Urine RBC (0-5) /hpf Urine WBC (0-5) /hpf Ur Squamous Epith Cells (0-4) /hpf Urine Mucus (None) /hpf Influenza Type A (PCR) Not Detected (Not Detectd) Influenza Type B (PCR) Not Detected (Not Detectd) RSV (PCR) Not Detected (Not Detectd) SARS-CoV-2 (PCR) Not Detected (Not Detectd) 03/26/23 Range/Units 04:45 WBC (3.8-10.6) k/uL RBC (3.80-5.40) m/uL Hgb (11.4-16.0) gm/dL Hct (34.0-46.0) % MCV (80.0-100.0) fL MCH (25.0-35.0) pg MCHC (31.0-37.0) g/dL RDW (11.5-15.5) % Plt Count (150-450) k/uL MPV Neutrophils % % Lymphocytes % % Monocytes % % Eosinophils % % Basophils % % Neutrophils # (1.3-7.7) k/uL Lymphocytes # (1.0-4.8) k/uL Monocytes # (0-1.0) k/uL Eosinophils # (0-0.7) k/uL Basophils # (0-0.2) k/uL Hyperchromasia Poikilocytosis Anisocytosis Microcytosis Sodium (137-145) mmol/L Potassium (3.5-5.1) mmol/L Chloride (98-107) mmol/L Carbon Dioxide (22-30) mmol/L Anion Gap mmol/L BUN (7-17) mg/dL Creatinine (0.52-1.04) mg/dL Est GFR (CKD-EPI)AfAm (>60 ml/min/1.73 sqM) Est GFR (CKD-EPI)NonAf (>60 ml/min/1.73 sqM) Glucose (74-99) mg/dL Calcium (8.4-10.2) mg/dL Total Bilirubin (0.2-1.3) mg/dL AST (14-36) U/L ALT (4-34) U/L Alkaline Phosphatase (38-126) U/L Total Protein (6.3-8.2) g/dL Albumin (3.5-5.0) g/dL Lipase (23-300) U/L Urine Color Yellow Urine Appearance Clear (Clear) Urine pH 6.0 (5.0-8.0) Ur Specific [place] 1.017 (1.001-1.035) Urine Protein Negative (Negative) Urine Glucose (UA) Negative (Negative) Urine Ketones Negative (Negative) Urine Blood Moderate H (Negative) Urine Nitrite Negative (Negative) Urine Bilirubin Negative (Negative) Urine Urobilinogen <2.0 (<2.0) mg/dL Ur Leukocyte Esterase Negative (Negative) Urine RBC 38 H (0-5) /hpf Urine WBC 3 (0-5) /hpf Ur Squamous Epith Cells 2 (0-4) /hpf Urine Mucus Rare H (None) /hpf Influenza Type A (PCR) (Not Detectd) Influenza Type B (PCR) (Not Detectd) RSV (PCR) (Not Detectd) SARS-CoV-2 (PCR) (Not Detectd) Disposition Clinical Impression: Headache Disposition: HOME SELF-CARE Condition: Good Instructions (If sedation given, give patient instructions): Acute Headache (ED) Is patient prescribed a controlled substance at d/c from ED?: No Referrals: Noel Becker MD [Primary Care Provider] - 1-2 days Time of Disposition: 06:09
[2023-03-26 03:26] LABS: ALT 23 U/L (4-34); AST 21 U/L (14-36); African American GFR (CKD) >90 (>60 ml/min/1.73 sqM); Albumin 4.4 g/dL (3.5-5.0); Alkaline Phosphatase 102 U/L (38-126); Anion Gap 15 mmol/L; Blood Urea Nitrogen 17 mg/dL (7-17); Calcium 10.5 mg/dL (8.4-10.2); Carbon Dioxide 24 mmol/L (22-30); Chloride 102 mmol/L (98-107); Glucose 159 mg/dL (74-99); Lipase 214 U/L (23-300); Non-African American GFR(CKD) >90 (>60 ml/min/1.73 sqM); Potassium 2.9 mmol/L (3.5-5.1); Sodium 141 mmol/L (137-145); Total Bilirubin 0.5 mg/dL (0.2-1.3); Total Protein 7.2 g/dL (6.3-8.2)
[2023-03-26 03:27] LABS: Anisocytosis Slight; Basophils % (A) 0 %; Eosinophils # (A) 0.1 k/uL (0-0.7); Eosinophils % (A) 1 %; HCT 36.4 % (34.0-46.0); Hyperchromasia Slight; Lymphocytes # (A) 1.1 k/uL (1.0-4.8); Lymphocytes % (A) 8 %; MCH 26.4 pg (25.0-35.0); MCHC 35.7 g/dL (31.0-37.0); MCV 74.1 fL (80.0-100.0); Microcytosis Moderate; Monocytes # (A) 0.5 k/uL (0-1.0); Monocytes % (A) 3 %; Neutrophils # (A) 11.9 k/uL (1.3-7.7); Neutrophils % (A) 88 %; Platelet Count 325 k/uL (150-450); Poikilocytosis Moderate; RBC 4.91 m/uL (3.80-5.40); RDW 16.7 % (11.5-15.5); WBC 13.6 k/uL (3.8-10.6)
[2023-03-26] MEDS ORDERED: DEXAMETHASONE SOD PHOSPHATE 10 MG/ML 1 ML VIAL IV STA (04:30)
[2023-03-26] MEDS: MAGNESIUM SULFATE-D5W PMX 1 GM in DEXTROSE/WATER 1 100ML.BAG IVPB SCH ×2 (04:36→05:04)
[2023-03-26 05:04] VITALS: BP 137/68; PULSE 105; RESP 20; TEMP 99.9
[2023-03-26 05:05] LABS: Appearance,Urine Clear (Clear); Bilirubin,Urine Negative (Negative); Blood,Urine Moderate (Negative); Color,Urine Yellow; Glucose,Urine (UA) Negative (Negative); Ketones,Urine Negative (Negative); Leukocyte Esterase,Urine Negative (Negative); Mucus,Urine Rare /hpf; Nitrite,Urine Negative (Negative); Protein,Urine Negative (Negative); RBC,Urine 38 /hpf (0-5); Specific Gravity,Urine 1.017 (1.001-1.035); Squamous Epithelial Cell,Urine 2 /hpf (0-4); Urobilinogen,Urine <2.0 mg/dL (<2.0); WBC,Urine 3 /hpf (0-5)
--- NOTE | 2023-03-26 05:53 | CT ---
EXAM: CT Head Without Intravenous Contrast CLINICAL HISTORY: ITS.REASON CT Reason: headache TECHNIQUE: Axial computed tomography images of the head/brain without intravenous contrast. CTDI is 49.2 mGy and DLP is 1099.4 mGy-cm. This CT exam was performed using one or more of the following dose reduction techniques: automated exposure control, adjustment of the mA and/or kV according to patient size, and/or use of iterative reconstruction technique. COMPARISON: 02/03/2011 FINDINGS: Brain: Unremarkable. No hemorrhage. No significant white matter disease. No edema. Ventricles: Unremarkable. No ventriculomegaly. Bones/joints: Unremarkable. No acute fracture. Soft tissues: Unremarkable. Sinuses: Unremarkable as visualized. No acute sinusitis. Mastoid air cells: Unremarkable as visualized. No mastoid effusion. IMPRESSION: Normal head/brain CT.
== END 2023-03-26 06:20 | disposition home or self-care (01) ==
LOC: EC 02:32
DX: R51.9 Headache, unspecified (principal); E11.9 Type 2 diabetes mellitus without complications; I10 Essential (primary) hypertension; F41.9 Anxiety disorder, unspecified; Z20.822 Contact with and (suspected) exposure to COVID-19; Z86.69 Personal history of other diseases of the nervous system and sense organs; Z90.49 Acquired absence of other specified parts of digestive tract; Z79.84 Long term (current) use of oral hypoglycemic drugs; Z79.899 Other long term (current) drug therapy; Z91.048 Other nonmedicinal substance allergy status
CPT/HCPCS: 36415; 80053; 83690; 85025; 81001; 87636; 70450; 99284; 96365; 96375 ×3; 96361 ×2; J1200; J1100; J2405; J3475; 96374

== ENCOUNTER → 2025-03-04 | Outpatient (CLI) | payer OTHER ==
--- NOTE | 2025-03-04 08:34 | MM ---
Reason for Exam: Screening (asymptomatic). Last mammogram was performed 5 year(s) and 9 month(s) ago. Patient History: Menarche at age 15. First Full-Term at age 24. Hysterectomy at age 49. Patient has history of breast feeding. Other cancer, age 46. Patient used Hormonal Contraceptives for 2 years. Risk Values: Gladis 5 year model risk: 0.8%. NCI Lifetime model risk: 8.4%. Prior Study Comparison: 06/07/2013 Screening Mammogram, [facility] . 06/15/2013 Screening Mammogram, [facility] . 06/16/2019 Bilateral Diagnostic Mammogram, [facility]. Tissue Density: The breasts are heterogeneously dense, which may obscure small masses. Findings: Analyzed By CAD. Breast density has overall increased from prior suggesting some interval weight loss from 2019. This likely accounts for the increased asymmetric densities particularly in the right upper outer quadrant. Further evaluation is recommended. Otherwise, no suspicious microcalcification or other discrete abnormality is seen. Overall Assessment: Incomplete: need additional imaging evaluation, BI-RAD 0 Management: Special View Mammogram of the right breast. [facility] will attempt to contact patient to return for supplemental views and ultrasound if indicated. [facility], , 03/04/2025 8:31 AM. Electronically signed and approved by: Dick Kirby M.D. Radiologist
== END | disposition home or self-care (01) ==
LOC: RADMAMWWP 07:51
PROVIDERS: ATTEND Family Medicine
DX: Z12.31 Encounter for screening mammogram for malignant neoplasm of breast (principal); R92.333 Mammographic heterogeneous density, bilateral breasts; Z92.0 Personal history of contraception
CPT/HCPCS: 77067

== ENCOUNTER → 2025-03-08 | Outpatient (CLI) | payer OTHER ==
--- NOTE | 2025-03-08 08:43 | MM ---
Reason for Exam: Additional evaluation requested from abnormal screening. Last screening mammogram was performed less than 1 month ago. Patient History: Menarche at age 15. First Full-Term at age 24. Hysterectomy at age 49. Patient has history of breast feeding. Other cancer, age 46. Patient used Hormonal Contraceptives for 2 years. Risk Values: Gladis 5 year model risk: 0.8%. NCI Lifetime model risk: 8.4%. Tissue Density: Right: The breasts are heterogeneously dense, which may obscure small masses. Findings: Analyzed By CAD. No suspicious new focal lesion is identified on additional views. Overall Assessment: Negative, BI-RAD 1 Management: Screening Mammogram of both breasts in 1 year. Return to routine follow-up. Results were given to the patient verbally at the time of exam. Patient should continue monthly self-breast exams. A clinical breast exam by your physician is recommended on an annual basis. This exam should not preclude additional follow-up of suspicious palpable abnormalities. Note on Gladis scores and lifetime risk: 1. A Gladis score greater than 3% is considered moderate risk. If this is the case, consider specialist referral to assess eligibility for a risk reducing agent. 2. If overall lifetime risk for the development of breast cancer is 20% or higher, the patient may qualify for future screening with alternating mammogram and breast MRI. [facility], , 03/08/2025 8:40 AM. Electronically signed and approved by: Chris Reyes M.D.
== END | disposition home or self-care (01) ==
LOC: RADMAMWWP 08:16
PROVIDERS: ATTEND Family Medicine
DX: R92.8 Other abnormal and inconclusive findings on diagnostic imaging of breast (principal); R92.333 Mammographic heterogeneous density, bilateral breasts; Z92.0 Personal history of contraception
CPT/HCPCS: 77061; 77065